=== PATIENT | male | born 1985 | race Caucasian/White ===

== ENCOUNTER 2016-10-17 01:25 | Emergency (ER) | payer BC ==
[~2016-10-17] VITALS: Ht 180.3 cm; Wt 139.3 kg
[2016-10-17] MEDS ORDERED: IV NORMAL SALINE 1000ML BAG 1,000 ML IV SCH (02:00)
[2016-10-17] MEDS ORDERED: KETOROLAC TROMETHAMINE 30 MG/ML SYRINGE. IV ONE (02:00)
[2016-10-17] MEDS ORDERED: ONDANSETRON PF 4 MG/2 ML VIAL. IV ONE (02:00)
[2016-10-17 02:02] LABS: CALCIUM 9.1 mg/dL (8.5-10.1); CREATININE 1.1 mg/dL (0.7-1.3); GFR 78.6; POTASSIUM 3.8 mmol/L (3.5-5.1)
[2016-10-17 02:08] LABS: ALBUMIN 3.9 g/dL (3.4-5.0); DIRECT BILIRUBIN 0.1 mg/dL (0.0-0.2); TOTAL BILIRUBIN 0.6 mg/dL (0.2-1.0); TOTAL PROTEIN 8.4 g/dL (6.4-8.2)
[2016-10-17] MEDS ORDERED: IV NORMAL SALINE 1000ML BAG 1,000 ML IV ONE (02:30)
--- NOTE | 2016-10-17 02:57 | PHYS DOC ---
Past Medical History Past Medical History: No Pertinent History Past Surgical History: No Surgical History Additional Information: STATES ON CHANTIX AND STOPPED A WEEK AGO Alcohol Use: Occasionally Drug Use: None Adult General Chief Complaint Chief Complaint: ABDOMINAL PAIN HPI HPI Patient is a 31 year old male who presents with multiple episodes of nausea and vomiting and diarrhea that started this evening associated with upper abdominal pain. He has nonbloody nonbilious emesis and nonbloody diarrhea. He had a syncopal episode after his most recent episode of emesis and hit his face in the bathroom. He has minimal nose and forehead achy pain and 3 associated abrasions that are nonbleeding. He currently feels lightheaded, nausea, and abdominal pain. He denies chest pain, cough, dyspnea, dysuria, sick contacts, recent travel, recent antibiotics. Review of Systems Review of Systems Constitutional: Denies fever or chills [] Eyes: Denies change in visual acuity, redness, or eye pain [] HENT: Denies nasal congestion or sore throat [] Respiratory: Denies cough or shortness of breath [] Cardiovascular: No additional information not addressed in HPI [] GI: Denies bloody stools or bloody emesis [] : Denies dysuria or hematuria [] Musculoskeletal: Denies back pain or joint pain [] Integument: Denies rash or skin lesions [] Neurologic: Denies headache, focal weakness or sensory changes [] Endocrine: Denies polyuria or polydipsia [] Current Medications Current Medications Current Medications Medications (Trade) Dose Ordered Sig/Bridget Start Time Stop Time Status Last Admin Dose Admin Ketorolac Tromethamine 10 mg 10 mg 1X ONCE 10/17/16 02:00 10/17/16 02:01 DC 10/17/16 02:00 10 MG Ondansetron HCl (Zofran) 4 mg 1X ONCE 10/17/16 02:00 10/17/16 02:01 DC 10/17/16 02:00 4 MG Sodium Chloride (Iv Sodium Chloride 0.9% 1000ml Bag) 1,000 ml @ 1,000 mls/hr 1X ONCE 10/17/16 02:30 10/17/16 03:29 10/17/16 02:23 1,000 MLS/HR Allergies Allergies Allergies Coded Allergies Type Severity Reaction Last Updated Verified No Known Drug Allergies 06/30/14 No Physical Exam Physical Exam Constitutional: Well developed, well nourished, no acute distress, non-toxic appearance. [] HENT: Normocephalic, bilateral external ears normal, oropharynx moist, no oral exudates, nose normal. Superficial abrasions over his nose and forehead with no palpable bony deformity and no bleeding [] Eyes: PERRLA, EOMI. [] Neck: Normal range of motion, supple. [] Cardiovascular:Heart rate regular rhythm [] Lungs & Thorax: Bilateral breath sounds clear to auscultation [] Abdomen: Bowel sounds normal, soft, minimal epigastric and left upper quadrant tenderness, no guarding or rebound. [] Skin: Warm, dry, no erythema, no rash. [] Back: No tenderness, no CVA tenderness. [] Extremities: No tenderness, ROM intact, no edema. [] Neurologic: Alert and oriented X 3, normal motor function, normal sensory function, no focal deficits noted, cranial nerves II through XII intact. [] Psychologic: Affect normal, judgement normal, mood normal. [] Current Patient Data Vital Signs Vital Signs Date Time Temp Pulse Resp B/P Pulse Ox O2 Delivery O2 Flow Rate FiO2 10/17/16 01:45 97.9 84 27 126/73 93 Room Air 97.9 Lab Values Laboratory Tests Test 10/17/16 01:47 Sodium Level 141mmol/L (136-145) Potassium Level 3.8mmol/L (3.5-5.1) Chloride Level 102mmol/L (98-107) Carbon Dioxide Level 26mmol/L (21-32) Anion Gap 13 (6-14) Blood Urea Nitrogen 18mg/dL (8-26) Creatinine 1.1mg/dL (0.7-1.3) Estimated GFR (Cockcroft-Gault) 78.6 Glucose Level 111mg/dL (70-99) H Calcium Level 9.1mg/dL (8.5-10.1) Total Bilirubin 0.6mg/dL (0.2-1.0) Direct Bilirubin 0.1mg/dL (0.0-0.2) Aspartate Amino Transferase (AST) 39U/L (15-37) H Alanine Aminotransferase (ALT) 78U/L (16-63) H Alkaline Phosphatase 65U/L (46-116) Total Protein 8.4g/dL (6.4-8.2) H Albumin 3.9g/dL (3.4-5.0) Lipase 134U/L (73-393) Laboratory Tests 10/17/16 01:47 EKG EKG EKG as interpreted by me as normal sinus rhythm, rate 77, no ST-T changes, normal intervals, no ectopy Course & Med Decision Making Course & Med Decision Making Pertinent Labs and Imaging studies reviewed. (See chart for details) Early in his stay, he sat up in his bed and then his eyes rolled backward and he passed out for a few seconds. This was witnessed by ED nursing. I evaluated him upon return of consciousness and he was alert and oriented. Suspect vasovagal syncope secondary to orthostasis. Laboratory evaluation is largely unremarkable. He was given IV fluids and medicines and felt much better. He was ambulatory in the department with a steady gait and would like to go home. Return precautions given. He understands and agrees with plan. Dragon Disclaimer Dragon Disclaimer This electronic medical record was generated, in whole or in part, using a voice recognition dictation system. Departure Departure Impression: Primary Impression: Nausea vomiting and diarrhea Additional Impressions: Abdominal pain Abrasion of face Syncope Disposition: HOME, SELF-CARE Condition: STABLE Patient Instructions: Nausea and Vomiting, [id number] Additional Instructions: Take Zofran as needed for nausea. Drink liquids to stay hydrated. Follow-up with your primary care doctor within one week. Return for any concerns. Scripts Ondansetron (Zofran Odt)4 Mg Tab.rapdis1 Tab SL Q8HRS #10 TAB Prov:Aura WONG MD 10/17/16 Problem Qualifiers Additional Impressions: Abdominal pain Abdominal location: epigastric Qualified Code: R10.13 - Epigastric pain Abrasion of face Encounter type: initial encounter Qualified Code: S00.81XA - Abrasion of other part of head, initial encounter Syncope Syncope type: vasovagal syncope Qualified Code: R55 - Syncope and collapse Aura WONG MD Oct 17, 2016 02:56
[2016-10-17] MEDS ORDERED: ONDA4TAB10 SL (03:16)
--- NOTE | 2016-10-17 03:26 | ACF ---
Admission Forms Criteria ABDOMINAL PAIN: OBSERVATION CARE USE THIS FORM ONLY WHEN INPATIENT ADMISSION CRITERIA ARE NOT MET. (Place X for any and all applicable criteria): Placement for observation care is indicated for a patient with ANY ONE of the following(1)(2)(3)(4)(5))(6): [X]I. Suspected condition requiring continued monitoring (e.g., ectopic , appendicitis) [A] []II. Undiagnosed pain after evaluation and initial treatment with ANY ONE of the following: []a) Continued pain unrelieved by symptomatic treatment []b) Patient unable to maintain hydration status []c) Concerning finding on examination (e.g., increasing tenderness, focal abdominal finding) or diagnostic testing (e.g., air fluid level on x-ray) []III. A child whose situation includes ANY ONE of the following: []a) Clinical response to outpatient therapy uncertain []b) Outpatient supervision by parents or caregivers uncertain []IV. Other observation care needs. (Also use General Criteria: Observation Care). The original [facility] content created by [email or web address] has been revised. The portions of the content which have been revised are identified through the use of italic text, and [facility] has neither reviewed nor approved the modified material. All other unmodified content is copyright [facility] [employer]. Please see references footnoted in the original [facility] edition 2016 Admission Criteria Met?: Yes ILSA THOMAS Oct 17, 2016 03:26
[2016-10-17 04:15] VITALS: BP 120/72
--- NOTE | 2016-10-17 06:14 | EKG ---
[facility] [address] [place] [address] Test Date: 2016-10-17 Test Time: 01:45:19 Pat Name: MALINDA KNOX Department: Room: Gender: M Utilization Management Manager: : 1985 Requested By: Aura WONG Order Number: [id number] Reading MD: Juan C Menjivar Measurements Intervals [place] Rate: 77 P: -31 RI: 154 QRS: 26 QRSD: 92 T: 120 QT: 372 QTc: 423 Interpretive Statements SUSPECT SINUS RHYTHM NON-SPECIFIC ST/T CHANGES LEFT AXIS DEVIATION Electronically Signed On 10-18-2016 15:31:25 [employer]EN[employer]AL OFFICE EQUIPMENT INSTALLER by Juan C Menjivar
== END 2016-10-17 04:28 | disposition home or self-care (01) ==
LOC: ER 01:25
DX: R10.13 Epigastric pain (principal); S00.81XA Abrasion of other part of head, initial encounter; R55 Syncope and collapse; W18.09XA Striking against other object with subsequent fall, initial encounter; Y93.89 Activity, other specified; Y92.89 Other specified places as the place of occurrence of the external cause; Y99.8 Other external cause status
CPT/HCPCS: 36415; 80048; 80076; 82947; 83690; 93005; 96361; 96374; 96375; 99285; J1885; J2405; J7030

== ENCOUNTER → 2020-11-09 | Outpatient (CLI) | payer BC ==
[~2020-11-09] MED LIST: ACET325T9 PO; GABA300C18 PO; MELO15TA23 PO; ONDA4TAB10 SL
== END ==
LOC: LAB 10:04
PROVIDERS: ATTEND Surgery
DX: Z01.812 Encounter for preprocedural laboratory examination (principal); Z20.822 Contact with and (suspected) exposure to COVID-19
CPT/HCPCS: U0003

== ENCOUNTER 2020-11-12 07:10 | Day surgery (SDC) | payer BC ==
[~2020-11-12] VITALS: Ht 180.3 cm; Wt 146.1 kg
[~2020-11-12 07:10] MED LIST changes: -ACET325T9 PO; -GABA300C18 PO; +HYDROmorphone 2 MG/ML VIAL IVP PRN; -MELO15TA23 PO; +MORPHINE SULFATE 2 MG/ML VIAL. IVP PRN; +PROCHLORPERAZINE 10 MG/2 ML VIAL. IVP PRN; +fentaNYL PF VIAL 100 MCG/2 ML VIAL IVP PRN
[2020-11-12] MEDS ORDERED: BUPIVACAINE-EPI 0.25% 30 ML VIAL KIT. ONE (07:23)
[2020-11-12] MEDS ORDERED: MELO15TA23 PO (07:40)
[2020-11-12] MEDS ORDERED: ACET325T9 PO (07:41)
[2020-11-12] MEDS ORDERED: GABA300C18 PO (07:41)
[2020-11-12] MEDS: IV RINGERS,LACTATED 1000ML 1,000 ML IV SCH ×2 (07:43→10:10)
[2020-11-12] MEDS ORDERED: ACETAMINOPHEN 500 MG TABLET PO ONE (07:45)
[2020-11-12] MEDS ORDERED: ACETAMINOPHEN 500 MG TABLET PO SCH (08:00)
[2020-11-12] MEDS ORDERED: ceFAZolin SODIUM 3 GM in IV DEXTROSE 5% 100ML 100 ML IV SCH (08:00)
[2020-11-12] MEDS ORDERED: ROCURONIUM 50 MG/5 ML VIAL. ONE (08:00)
[2020-11-12] MEDS ORDERED: LIDOCAINE 2% PF 5 ML VIAL. ONE (08:00)
[2020-11-12] MEDS ORDERED: PROPOFOL 10 MG/ML (20ML) VIAL. IV ONE (08:00)
[2020-11-12] MEDS ORDERED: MIDAZOLAM HCL/PF 2 MG/2 ML VIAL. ONE (08:01)
[2020-11-12] MEDS ORDERED: fentaNYL PF VIAL 250 MCG/5 ML VIAL ONE (08:03)
[2020-11-12] MEDS ORDERED: NEOSTIGMINE METHYLSULFATE 5 MG/5 ML SYRINGE. ONE (08:46)
[2020-11-12] MEDS ORDERED: DEXAMETHASONE SOD PHOS 4 MG/ML VIAL ONE (08:46)
[2020-11-12] MEDS ORDERED: ONDANSETRON PF 4 MG/2 ML VIAL. ONE (08:46)
[2020-11-12] MEDS ORDERED: GLYCOPYRROLATE 1 MG/5 ML VIAL. ONE (08:46)
--- NOTE | 2020-11-12 09:21 | PDOC4 ---
Operative Note Operative Note Date: November 122020 at 09 18 Preoperative diagnosis: Pilonidal cyst Postoperative diagnosis: Same Procedure: Pilonidal cystectomy Surgeon: Jerson Specimen: Pilonidal cyst Dictation: Patient is a 35-year-old male with complaining of a chronically draining wound at the buttocks in the cleft. Procedure of pilonidal cystectomy was explained to the patient detail risk benefits were also discussed including bleeding infection. Alternatives to this procedure also discussed with the patient who seemed to understand and gave both verbal and written consent to have the procedure performed. Patient was taken to the operating room placed in the supine position general anesthesia was initiated once patient was asleep and intubated he was then repositioned in the prone positioning. The midline buttocks was prepped and draped usual sterile fashion using Betadine scrub and solution. An area around the pilonidal cyst was injected with quarter percent Marcaine with epinephrine an elliptical incision was made with a 10 blade scalpel is carried down through the subcutaneous tissue using electrocautery right hemostasis once the pilonidal cyst was completely excised was sent for pathology the wound was then closed in 3 layers deep layer running 2-0 Vicryl more superficial layer running 3-0 Vicryl and the skin was reapproximated with horizontal mattress sutures of 3-0 nylon. The wound was dressed with 4 x 4's ABD and mesh pants. Patient was repositioned in the supine positioning awakened and extubated in the operating room taken to recovery in stable condition all sponge instrument needle counts listed as correct estimated blood loss 10 mL BRUNO WEAVER MD Nov 12, 2020 09:21
--- NOTE | 2020-11-12 09:23 | DISCH ---
DISCHARGE INSTRUCTIONS Condition on Discharge Condition on Discharge: Stable Activity After Discharge Activity Instructions for Disc: Avoid exertion Other activity instructions: No lifting more than 20 pounds for 2 weeks Diet after Discharge Diet after Discharge: Regular Wound Incision Care Other wound/incision instructi: Allison shower in 24 hours Contacting the DRClaritza after DC Call your doctor for: If your condition worsens Follow-Up Follow up with: Dr. Weaver in 2 weeks BRUNO WEAVER MD Nov 12, 2020 09:23
[2020-11-12] MEDS ORDERED: oxyCODONE/APAP 5/325 1 TAB TABLET PO ONE ×2 (09:30)
[2020-11-12 11:00] VITALS: BP 143/66
--- NOTE | 2020-11-16 14:10 | PATHOLOGY ---
[facility] Accession Number: [id number] . 01 Material submitted: . gluteal cleft - PILONDAL CYST . 02 Diagnosis: Skin and subcutaneous tissue, pilonidal cystectomy: - Pilonidal sinus showing acute and chronic inflammation. ([facility] 11/16[facility] P 11/16/2020 1159 Local . 02 Electronically signed: . Alin Dorantes MD, Pathologist NPI- [id number] . 01 Gross description: . The specimen is received in formalin, labeled "Erlin Day, pilonidal cyst". Received is an ellipse of pale keller skin with attached underlying fibroadipose tissue measuring 5.8 x 1.2 x 2.6 cm in greatest dimensions. Sectioning reveals a linear sinus tract measuring 1.1 cm in length by 0.2 cm in width, and is devoid of content. The specimen is submitted representatively in cassette A1. ([facility]; 11/13/2020) QA/QA 11/13/2020 1135 Local . 02 Pathologist provided ICD-10: L05.91 . 02 CPT . 748275 Specimen Comment: A courtesy copy of this report has been sent to [phone] Specimen Comment: Report sent to Performed at: 01 [facility] [address], [place] [id number] MD Donny Antony MD Phone: [phone] Performed at: 02 [facility] [address] [place], [place] [id number] MD Alin Dorantes MD Phone: [phone]
== END 2020-11-12 11:29 | disposition home or self-care (01) ==
LOC: SURG 07:10
PROVIDERS: ATTEND Surgery
DX: L05.91 Pilonidal cyst without abscess (principal); Z87.891 Personal history of nicotine dependence; Z79.899 Other long term (current) drug therapy; Z98.890 Other specified postprocedural states; Z72.89 Other problems related to lifestyle
CPT/HCPCS: 11770; A4461; J1100; J2250; J2405; J2704; J2710; J3010; J3490; 88304